=== PATIENT | male | born 1955 | race Caucasian/White ===

== ENCOUNTER 2024-10-30 06:00 | Observation (INO) | payer OTHER ==
[2024-10-30 07:15] LABS: INR 1.01 (0.83-1.09); PROTHROMBIN TIME (PATIENT) 11.6 SEC (9.7-13.0)
[2024-10-30 07:16] LABS: BASO % 0.6 % (0-2.0); EOS % 2.5 % (0-4.5); HEMOGLOBIN 12.2 GM/dL (11.7-16.9); LYMPH % 21.5 % (8-40); MCH 30.9 pg (25.7-33.7); MEAN CELL VOLUME 90.9 fl (80-96); MEAN PLT VOLUME 7.7 fl (7.5-11.1); MONO % 8.8 % (3.8-10.2); NEUT % 66.6 % (42.8-82.8); PLATELET COUNT 172 10^3/uL (134-434); RBC 3.96 M/mm3 (4.00-5.60); RDW 14.6 % (11.9-15.9); WHITE BLOOD COUNT 6.7 K/mm3 (4.0-10.0)
[2024-10-30 07:18] LABS: ACTIVATED PTT 31.8 SECONDS (25.2-36.5)
[2024-10-30 07:30] LABS: POTASSIUM 4.5 mmol/L (3.5-5.1)
[2024-10-30 07:32] LABS: CALCIUM 9.3 mg/dL (8.5-10.1)
[2024-10-30 07:33] LABS: ALBUMIN 3.1 g/dl (3.4-5.0); BLOOD UREA NITROGEN 29.1 mg/dL (7-18)
[2024-10-30 07:38] LABS: BILIRUBIN,TOTAL 0.3 mg/dL (0.2-1); TOT PROT 7.1 g/dl (6.4-8.2)
[2024-10-30 09:03] LABS: ERYTHROCYTE SEDIMENTATION RATE 55 mm/hr (0-20)
[2024-10-30] MEDS ORDERED: ACETAMINOPHEN 325 MG TABLET (FP) PO PRN (11:19)
[2024-10-30] MEDS ORDERED: LIDOCAINE HCL 1%, 10 MG/ML (20ML VIAL) ONE (13:29)
[2024-10-30] MEDS ORDERED: BUPIVACAINE HCL/PF 0.5% (5MG/ML) 10 ML VIAL ONE (13:29)
[2024-10-30] MEDS ORDERED: MIDAZOLAM HCL 2 MG/2 ML SINGLE DOSE VIAL ONE (13:35)
[2024-10-30] MEDS ORDERED: ONDANSETRON 4 MG/2 ML VIAL IVPUSH PRN ×2 (13:55→14:58)
[2024-10-30] MEDS: LIDOCAINE HCL 1%, 10 MG/ML (20ML VIAL) NR ONE ×2 (14:21)
[2024-10-30] MEDS: BUPIVACAINE HCL/PF 0.5% (5MG/ML) 10 ML VIAL IJ ONE ×2 (14:21)
[2024-10-30] MEDS: ceFAZolin SODIUM 1 GM VIAL IVPB ONE (14:30)
[2024-10-30 15:14] VITALS: BMI 35.2
[2024-10-30] MEDS: LACTATED RINGERS SOLUTION 1,000 ML IV SCH ×2 (15:24→18:08)
[2024-10-30] MEDS: CEFTRIAXONE 2 GM-D5W BAG 2 GM/50 ML BAG IVPB SCH (18:08)
[2024-10-31 08:24] LABS: BASO % 0.4 % (0-2.0); EOS % 2.4 % (0-4.5); HEMATOCRIT 31.2 % (35.4-49); HEMOGLOBIN 10.7 GM/dL (11.7-16.9); LYMPH % 22.9 % (8-40); MCHC 34.2 g/dl (32.0-35.9); MEAN CELL VOLUME 90.8 fl (80-96); MONO % 9.6 % (3.8-10.2); NEUT % 64.7 % (42.8-82.8); PLATELET COUNT 127 10^3/uL (134-434); RBC 3.44 M/mm3 (4.00-5.60); RDW 14.6 % (11.9-15.9); WHITE BLOOD COUNT 5.9 K/mm3 (4.0-10.0)
[2024-10-31 08:48] LABS: POTASSIUM 4.8 mmol/L (3.5-5.1)
[2024-10-31 08:59] LABS: CALCIUM 9.1 mg/dL (8.5-10.1)
[2024-10-31 09:01] LABS: ALBUMIN 2.6 g/dl (3.4-5.0)
[2024-10-31 09:02] LABS: CREATININE 0.9 mg/dL (0.55-1.3)
[2024-10-31 09:04] LABS: BILIRUBIN,TOTAL 0.6 mg/dL (0.2-1)
[2024-10-31 09:06] LABS: TOT PROT 6.1 g/dl (6.4-8.2)
[2024-10-31] MEDS: ENOXAPARIN NA (PORCINE) 40 MG/0.4 ML DISP.SYRIN SQ SCH (09:29)
[2024-10-31] MEDS: ASPIRIN 81 MG CHEWABLE TABLETS PO SCH (09:43)
[2024-10-31] MEDS: VALSARTAN 160 MG TABLET PO SCH (09:43)
[2024-10-31] MEDS: MULTIVITAMINS THER W-MINERALS COMBO TABLET (FP) PO SCH (09:43)
[2024-10-31] MEDS: AMMONIUM LACTATE 12% LOTION 225 GM BOTTLE TP SCH (09:44)
[2024-10-31] MEDS ORDERED: MULTIVITAMINS THER W-MINERALS COMBO TABLET (FP) PO SCH (10:00)
[2024-10-31] MEDS ORDERED: AMMONIUM LACTATE 12% LOTION 225 GM BOTTLE TP SCH (10:00)
[2024-10-31] MEDS ORDERED: ENOXAPARIN NA (PORCINE) 40 MG/0.4 ML DISP.SYRIN SQ SCH (10:00)
[2024-10-31] MEDS ORDERED: ASPIRIN 81 MG CHEWABLE TABLETS PO SCH (10:00)
[2024-10-31] MEDS ORDERED: VALSARTAN 160 MG TABLET PO SCH (10:00)
[2024-10-31] MEDS ORDERED: PATIENT'S OWN MEDICATION (NON-FORMULARY) (Cholecalciferol (Vitamin D3) [Vitamin D3] 1,250 PO SCH (10:00)
[2024-11-01 07:18] VITALS: RESP 18
[2024-11-01] MEDS: CHOLECALCIFEROL (VIT D3) 1,000 UNIT (25 MCG) TABLET PO SCH (10:17)
[2024-11-02] MEDS: COLLAGENASE CLOSTRIDIUM HIST. 30 GRAMS TUBE TP SCH (17:27)
[2024-11-04] MEDS: ACETAMINOPHEN 325 MG TABLET (FP) PO PRN (09:43)
[2024-11-05 09:16] LABS: BASO % 0.5 % (0-2.0); EOS % 1.5 % (0-4.5); HEMATOCRIT 31.7 % (35.4-49); HEMOGLOBIN 10.7 GM/dL (11.7-16.9); LYMPH % 25.1 % (8-40); MCH 30.7 pg (25.7-33.7); MCHC 33.6 g/dl (32.0-35.9); MEAN CELL VOLUME 91.4 fl (80-96); MEAN PLT VOLUME 8.8 fl (7.5-11.1); MONO % 9.8 % (3.8-10.2); NEUT % 63.1 % (42.8-82.8); PLATELET COUNT 119 10^3/uL (134-434); RBC 3.47 M/mm3 (4.00-5.60); RDW 14.6 % (11.9-15.9); WHITE BLOOD COUNT 4.4 K/mm3 (4.0-10.0)
[2024-11-05 09:46] LABS: BLOOD UREA NITROGEN 19.5 mg/dL (7-18)
[2024-11-05 09:49] LABS: CREATININE 0.8 mg/dL (0.55-1.3)
[2024-11-05 09:50] LABS: TOT PROT 5.5 g/dl (6.4-8.2)
[2024-11-05 09:53] LABS: BILIRUBIN,TOTAL 0.3 mg/dL (0.2-1)
[2024-11-05 09:57] LABS: CALCIUM 7.7 mg/dL (8.5-10.1)
[2024-11-06 16:01] VITALS: BP 113/68; PULSE 81; TEMP 99.5
== END 2024-11-06 18:34 ==
LOC: JER 06:00 → UNDOADMOB 06:38 → INTOOBSV 06:38 → JERBED 06:38 → J8W 11:47 → JERBED 11:47 → J8W 14:50 → JERBED 14:50
PROVIDERS: ADMIT Internal Medicine; ATTEND Internal Medicine
PROC: 3E03329 Introduction of Other Anti-infective into Peripheral Vein, Percutaneous Approach (ICD-10-PCS; 2024-10-30)
PROC: 3E023GC Introduction of Other Therapeutic Substance into Muscle, Percutaneous Approach (ICD-10-PCS; 2024-10-30)
PROC: 3E0337Z Introduction of Electrolytic and Water Balance Substance into Peripheral Vein, Percutaneous Approach (ICD-10-PCS; 2024-10-30)
PROC: 0QBN3ZX Excision of Right Metatarsal, Percutaneous Approach, Diagnostic (ICD-10-PCS; principal; 2024-10-30 14:00)
PROC: 02H633Z Insertion of Infusion Device into Right Atrium, Percutaneous Approach (ICD-10-PCS; 2024-11-06)
PROC: B518ZZA Fluoroscopy of Superior Vena Cava, Guidance (ICD-10-PCS; 2024-11-06)
DX: M86.9 Osteomyelitis, unspecified (principal); S91.301D Unspecified open wound, right foot, subsequent encounter; X58.XXXD Exposure to other specified factors, subsequent encounter; I89.0 Lymphedema, not elsewhere classified; R60.0 Localized edema
CPT/HCPCS: 0241U-QW; 36415; 36569; 73630-TC-LT; 73630-TC-RT-FY; 80053; 85025; 85610; 85651; 85730; 86140; 86850; 86900; 86901; 87070; 87075; 87205; 87635; 93005; 93010; 94760; 96361; 96365; 96367; 96372; 97116-GP; 97161-GP; 99285-25; G0378